=== PATIENT | male | born 1930 | race Caucasian/White ===

== ENCOUNTER 2017-04-15 04:58 | Observation (INO) | payer MEDICARE, BC ==
[2017-04-15 06:13] LABS: BASOPHILS % (AUTO) 1 % (0-3); EOSINOPHILS % (AUTO) 4 % (0-9); HEMATOCRIT 42 % (39-53); MEAN CORPUSCULAR HGB CONC 34.7 gm/dl (32.0-36.0); MONOCYTES % (AUTO) 6.9 % (0-12)
[2017-04-15 06:20] LABS: ALBUMIN 3.5 gm/dl (3.4-5.0); ALT 48 IU/L (14-63); CALCIUM 8.9 mg/dl (8.5-10.1); GLOM FILT RATE 55 mL/min (>60); POTASSIUM 3.6 mMol/L (3.5-5.1); SODIUM 140 mMol/L (136-145)
[2017-04-15 06:23] LABS: MEAN CORPUSCULAR VOLUME 99 fL (80-100)
[2017-04-15 06:36] LABS: ANISOCYTOSIS MOD AMT; OVALOCYTES PRESENT
[2017-04-15] MEDS ORDERED: SODIUM CHLORIDE 0.9% FLUSH 10 ML SOL IV PRN (07:33)
[2017-04-15] MEDS ORDERED: PATIENT EDUCATION 1 MISC PRN (08:49)
[2017-04-15] MEDS ORDERED: METOPROLOL TARTRATE 25 MG TAB PO SCH (09:00)
[2017-04-15] MEDS: SODIUM CHLORIDE 0.9% FLUSH 10 ML SOL IV SCH ×2 (10:25→17:36)
[2017-04-15] MEDS: SENNOSIDES A AND B 8.6 MG TAB PO SCH (10:29)
[2017-04-15] MEDS: ASPIRIN 325 MG TAB PO SCH (10:29)
[2017-04-15] MEDS: DOCUSATE SODIUM 100 MG SGL PO SCH (10:29)
[2017-04-15] MEDS: ALLOPURINOL 100 MG TAB PO SCH (10:29)
[2017-04-15] MEDS: AMLODIPINE 5 MG TAB PO SCH (10:30)
[2017-04-15] MEDS: SIMVASTATIN 20 MG TAB PO SCH (10:30)
[2017-04-15] MEDS: FUROSEMIDE 20 MG TAB PO SCH (10:30)
[2017-04-15] MEDS: LOSARTAN POTASSIUM 50 MG TAB PO SCH (10:31)
[2017-04-15] MEDS: METOPROLOL TARTRATE 50 MG TAB PO SCH ×2 (10:31→20:04)
[2017-04-15] MEDS: FAMOTIDINE 20 MG TAB PO SCH (10:32)
[2017-04-15] MEDS: FISH OIL 500 MG CAP PO SCH ×2 (10:34→20:03)
[2017-04-16 00:26] VITALS: O2SAT 94
[2017-04-16] MEDS: SODIUM CHLORIDE 0.9% FLUSH 10 ML SOL IV SCH ×2 (07:01→12:11)
[2017-04-16 07:24] VITALS: BP 138/76; PULSE 56; RESP 20; TEMP 98
[2017-04-16] MEDS: LOSARTAN POTASSIUM 50 MG TAB PO SCH (08:44)
[2017-04-16] MEDS: FUROSEMIDE 20 MG TAB PO SCH (08:44)
[2017-04-16] MEDS: FISH OIL 500 MG CAP PO SCH (08:44)
[2017-04-16] MEDS: ASPIRIN 325 MG TAB PO SCH (08:44)
[2017-04-16] MEDS: DOCUSATE SODIUM 100 MG SGL PO SCH (08:44)
[2017-04-16] MEDS: SIMVASTATIN 20 MG TAB PO SCH (08:44)
[2017-04-16] MEDS: METOPROLOL TARTRATE 50 MG TAB PO SCH (08:45)
[2017-04-16] MEDS: SENNOSIDES A AND B 8.6 MG TAB PO SCH (08:46)
[2017-04-16] MEDS: ALLOPURINOL 100 MG TAB PO SCH (08:46)
[2017-04-16] MEDS: AMLODIPINE 5 MG TAB PO SCH (08:46)
[2017-04-16] MEDS: FAMOTIDINE 20 MG TAB PO SCH (08:46)
== END 2017-04-16 10:45 | disposition home or self-care (01) | DRG 204 ==
LOC: ED 04:58 → ACUTE CARE 08:00
PROVIDERS: ADMIT Family Medicine; ATTEND Family Medicine
DX: R06.02 Shortness of breath (principal); I50.31 Acute diastolic (congestive) heart failure; I25.10 Atherosclerotic heart disease of native coronary artery without angina pectoris; R79.89 Other specified abnormal findings of blood chemistry; I11.0 Hypertensive heart disease with heart failure
CPT/HCPCS: 36415; 71020; 80053; 83880; 84484; 85025; 85378; 85610; 93005; 93012; 94762; 99284